=== PATIENT | male | born 1945 | race Caucasian/White ===

== ENCOUNTER 2023-12-20 11:57 | Outpatient (RCR) | payer MEDICARE, OTHER | END 2024-01-07 | disposition home or self-care (01) | LOC: COL.CR | DX: I25.118 Atherosclerotic heart disease of native coronary artery with other forms of angina pectoris (principal); I25.10 Atherosclerotic heart disease of native coronary artery without angina pectoris; Z95.1 Presence of aortocoronary bypass graft; Z95.5 Presence of coronary angioplasty implant and graft ==

== ENCOUNTER 2024-02-17 08:54 | Day surgery (SDC) | payer MEDICARE, OTHER ==
[2024-02-17] VITALS (12 sets, daily range): BP systolic 131–163; BP diastolic 63–73; PULSE 44–64; TEMP 98
[~2024-02-17] VITALS: Ht 188 cm; Wt 90.6 kg
[2024-02-17] MEDS ORDERED: 1/2 NS 1,000 ML IV SCH (09:15)
[2024-02-17 09:35] LABS: HEMATOCRIT 42.9 % (42.0-52.0); HEMOGLOBIN 13.7 g/dl (13.5-18.0); MEAN CELL VOLUME 89 fl (80.0-100.0); MEAN CORPUSCULAR HEMOGLOBIN 29 pg (27-31); MEAN CORPUSCULAR HGB CONC 32 g/dl (33.0-37.0); PLATELET COUNT 195 K/mm3 (130-400); REDCELL DISTRIBUTION WIDTH-CV 14.3 % (11.5-14.5)
[2024-02-17] MEDS ORDERED: ATACAND HCT 161 TAB PO (09:42)
[2024-02-17] MEDS ORDERED: VYTORIN 10 MG-41 TAB PO (09:43)
[2024-02-17] MEDS ORDERED: ADALAT CC30 MG PO (09:43)
[2024-02-17] MEDS ORDERED: TOPROL XL 50MG50 MG PO ×2 (09:44)
[2024-02-17] MEDS ORDERED: PROTONIX 40MG T40 MG PO (09:45)
[2024-02-17] MEDS ORDERED: SYNTHROID0.05 MG/TA PO (09:45)
[2024-02-17] MEDS ORDERED: PLAVIX 75MG TAB75 MG PO (09:45)
[2024-02-17] MEDS ORDERED: FLOMAX 0.40.4 MG/CAP PO (09:46)
[2024-02-17] MEDS ORDERED: ASPIRIN 81M81 MG/TA2 PO (09:46)
[2024-02-17] MEDS ORDERED: MYSOLINE 5050 MG/TAB PO (09:46)
[2024-02-17] MEDS ORDERED: NITROSTAT0.4 MG/TAB SL (09:46)
[2024-02-17] MEDS ORDERED: JARDIANCE10 PO (09:47)
[2024-02-17] MEDS ORDERED: IMDUR 30MG30 MG/TAB PO (09:52)
[2024-02-17 09:57] LABS: CALCIUM 9.2 mg/dL (8.4-10.2); CREATININE, serum 1.44 mg/dL (0.72-1.25); POTASSIUM 4.2 mEq/L (3.5-4.5)
[2024-02-17 09:59] LABS: PROTHROMBIN TIME 10.7 SECONDS (9.7-12.8)
[2024-02-17 10:01] LABS: PARTIAL THROMBOPLASTIN TIME 31.9 SECONDS (26.0-37.0)
--- NOTE | 2024-02-17 11:19 | NUR ---
SEE MERGE FOR PROCEDURE DOCUMENTATION
[2024-02-17] MEDS ORDERED: Midazolam 2 MG/2 ML VIAL IV SCH (11:45)
[2024-02-17] MEDS ORDERED: fentaNYL 50 MCG/ML 2 ML VIAL IV SCH (11:47)
[2024-02-17] MEDS ORDERED: Iohexol 350 - 100 ML VIAL INCOR ONE (11:56)
[2024-02-17] MEDS ORDERED: RANEXA 500MG T500 MG PO (12:17)
[2024-02-17] MEDS ORDERED: ISOSORBIDE MON120 MG PO (12:21)
--- NOTE | 2024-02-17 12:36 | NUR ---
PATIENT ALERT AND ORIENTED, VSS. PATIENT DENIES PAIN OR NAUSEA. TRANSFERRED TO BED VIA SLIDEBOARD, POSITIONED FOR COMFORT. EDUCATED TO REMAIN SUPINE AND AVOID INCREASING ABDOMINAL PRESSURE. FAMILY BROUGHT TO BEDSIDE, EDUCATION PROVIDED AND PLAN OF CARE REVIEWED. BED TO LOWEST POSITION, CALL LIGHT WITHIN REACH, X3 BEDRAILS IN PLACE. GROIN SITE REMAINS SOFT TO PALPATION AND CDI. TRANSFER OF CARE TO BALBIR CALDERON.
--- NOTE | 2024-02-17 17:39 | NUR ---
PT TOLERATED RECOVERY PERIOD WELL. PT REMAINED FLAT FOR [address] PRINCE ORDERS. RIGHT FEMORAL DRESSING REMAINED CLEAN DRY AND INTACT, PT REMAINED FREE FROM SIGNS OF BLEEDING AND HEMATOMA. PT VERBALIZED UNDERSTANDING OF DISCHARGE INSTRUCTIONS AND REMAINED FREE FROM ACUTE CONCERNS AND COMPLAINTS. IV DISCONTINUED. PT ASSISTED TO ER EXIT VIA WHEELCHAIR.
== END 2024-02-17 17:40 | disposition home or self-care (01) ==
LOC: COL.CAR 08:54
PROVIDERS: Internal Medicine Cardiovascular Disease
DX: I25.10 Atherosclerotic heart disease of native coronary artery without angina pectoris (principal); I25.810 Atherosclerosis of coronary artery bypass graft(s) without angina pectoris; E78.2 Mixed hyperlipidemia; Z95.5 Presence of coronary angioplasty implant and graft; Z95.1 Presence of aortocoronary bypass graft; Z79.82 Long term (current) use of aspirin; Z79.02 Long term (current) use of antithrombotics/antiplatelets; Z87.891 Personal history of nicotine dependence
CPT/HCPCS: C1760; C1894; J1644; J2250; J3010; Q9967

== ENCOUNTER 2024-04-24 14:47 | Outpatient (RCR) | payer MEDICARE, OTHER ==
[~2024-04-24 14:47] MED LIST: ADALAT CC30 MG PO; ASPIRIN 81M81 MG/TA2 PO; ATACAND HCT 161 TAB PO; FLOMAX 0.40.4 MG/CAP PO; IMDUR 30MG30 MG/TAB PO; ISOSORBIDE MON120 MG PO; JARDIANCE10 PO; MYSOLINE 5050 MG/TAB PO; NITROSTAT0.4 MG/TAB SL; PLAVIX 75MG TAB75 MG PO; PROTONIX 40MG T40 MG PO; RANEXA 500MG T500 MG PO; SYNTHROID0.05 MG/TA PO; TOPROL XL 50MG50 MG PO; VYTORIN 10 MG-41 TAB PO
== END 2024-05-08 | disposition home or self-care (01) ==
LOC: COL.CR
DX: Z02.89 Encounter for other administrative examinations (principal)